=== PATIENT | female | born 2000 | race Caucasian/White ===

== ENCOUNTER 2019-05-20 09:21 | Emergency (ER) | payer OTHER ==
[2019-05-20 09:33] VITALS: BP 117/73; PULSE 75; TEMP 98; BMI 20.5
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
== END 2019-05-20 12:05 | disposition home or self-care (01) ==
LOC: JERFT 09:21
DX: M54.2 Cervicalgia (principal); R51 Headache; V43.52XA Car driver injured in collision with other type car in traffic accident, initial encounter; Y93.89 Activity, other specified; Y92.410 Unspecified street and highway as the place of occurrence of the external cause; Z91.018 Allergy to other foods
CPT/HCPCS: 70450-TC; 72125-TC; 84703; 99282-25